=== PATIENT | male | born 1955 | race Caucasian/White ===

== ENCOUNTER 2017-03-07 05:00 | Day surgery (SDC) | payer MEDICARE, MEDICAID ==
[2017-03-06 11:09] LABS: HEMATOCRIT 49.1 % (42.0-54.0); HEMOGLOBIN 17.1 g/dL (13.5-17.5); MCH 31.9 pg (26.0-34.0); MCHC 34.8 g/dL (31.0-37.0); MCV 91.6 fL (80.0-100.0); MEAN PLATELET VOLUME 10.7 fL (7.4-10.4); RBC 5.36 10x6/uL (4.20-6.10); RDW 12.9 % (11.5-14.5); WBC 11.1 10x3/uL (4.8-10.8)
[2017-03-06 11:25] LABS: CALC OSMOLALITY 277 mosm/kg (275-300); CALCIUM 9.3 mg/dL (8.5-10.1); CHLORIDE - SERUM 103 mmol/L (98-107); SODIUM 136 mmol/L (136-145); UREA NITROGEN 15 mg/dL (7-18); eGFR NON AFRICAN AMERICAN 81 mL/min (90-120)
[2017-03-06 11:27] LABS: GLUCOSE 197 mg/dL (74-106)
[~2017-03-07] VITALS: Ht 167.6 cm; Wt 101.6 kg
[~2017-03-07 05:00] MED LIST: BREO ELLIPTA 11 EACH INH; CELEXA20 MG PO; DALIRESP500 MCG PO; FLOMAX0.4 MG PO; FLUTICASONE PRO16 GM NASAL; FOLIC ACID1 MG PO; IBUPROFEN600 MG PO; IPRAT-ALBUT 0.5-3 ML UPD; LEVAQUIN500 MG PO; LEVEMIR100 U/M1 SC; LISINOPRIL-HCTZ1 T13 PO; LISINOPRIL10 MG PO; MOBIC7.5 MG PO; MUCINEX DM ER1 EAC1 PO; NEURONTIN600 MG PO; NICODERM C1 PATCH .3 TRANSDERM; PERCOCET 5-3251 TAB PO; PREDNISONE10 MG PO; PROAIR HFA8.5 GM INH; PROTONIX40 MG PO; PULMICORT0.5 MG/21 UPD; SINGULAIR10 MG PO; STERAPRED 5MG 125 MG PO; STERAPRED DS 1210 MG PO; TESSALON PERLE100 MG PO; THIAMINE HCL50 MG PO; ZESTORETIC 20/21 TAB PO
[2017-03-07 05:38] VITALS: BP 135/74; Ht 167.6 cm; Wt 101.6 kg
[2017-03-07] MEDS ORDERED: PERCOCET 5-3251 TAB PO (08:07)
--- NOTE | 2017-03-07 08:20 | NUR ---
UPON ENTRANCE TO RECOVERY THE PATIENT WAS ADJITATED AND TRYING TO GET UP OUT OF BED. VERSED AND DILAUDID WERE ORDERED WITH A POSITIVE RESPONSE.
--- NOTE | 2017-03-07 09:36 | NUR ---
IV DC WITH CATHER TIP INTACT
--- NOTE | 2017-03-11 10:25 | OP ---
PATIENT NAME: AKOSUA GUZMÁN MEDICAL RECORD: [id number] :57 LOCATION:[facility] ADMISSION DATE: SURGEON: KARLEY GUILLORY MD DATE OF OPERATION: 03/07/2017 PREOPERATIVE DIAGNOSIS: Left posterior shoulder cyst and left side of his posteromedial spine cyst. POSTOPERATIVE DIAGNOSIS: Left posterior shoulder cyst and left side of his posteromedial spine cyst. PROCEDURE PERFORMED: Excision of two cysts, the shoulders cyst was approximately 2 cm x 2 cm and the one by the spine was about 1.5 cm x 1 cm. These were both removed in their entirety and sent separately to pathology. There were copiously irrigated then closed. ANESTHESIA: General. CONDITION: He tolerated the procedure well and was transferred to the recovery room in stable condition. INDICATIONS: This is a 61-year-old gentleman who has had 2 areas, one on the back of his shoulder and one on the back of his back that has been consistent with what appeared to be a cyst. He recalls perhaps a puncture wound there that may be started it. We discussed the options. He wanted these excised. OPERATIVE REPORT: The patient was taken to the operating room and placed in supine position. General anesthesia was obtained. He was then flipped to prone position. The 2 areas were prepped and draped in normal fashion. I then made an incisions over each of them taking them out circumferentially removing all of the tissue involved. Once this was accomplished, they were both sent to pathology in separate containers. They did appear to be most likely epidermal inclusion cyst. The 2 incisions were copiously irrigated, then closed with 2-0 Vicryl, then Prolene, placed in half inch Steri-Strips, a soft dressing, awakened and transferred to the recovery room in stable condition. We will see him back in the clinic about 10-14 days. TRANSINT:[id number] Voice Confirmation ID: [id number] DOCUMENT ID: [id number] KARLEY GUILLORY MD at 1025 CC: [id number] DICTATION DATE: 03/07/17 1037 RETIREMENT OFFICER: 03/07/17 1713 [facility] 03/07/17 [id number] [place] [address]
== END 2017-03-07 09:40 | disposition home or self-care (01) ==
LOC: D.OPS 05:00 → D.PAN 09:45
PROVIDERS: Anesthesiology
DX: L72.0 Epidermal cyst (principal); M25.512 Pain in left shoulder; M16.10 Unilateral primary osteoarthritis, unspecified hip; E11.9 Type 2 diabetes mellitus without complications

== ENCOUNTER 2017-03-28 06:18 | Day surgery (SDC) | payer MEDICARE, MEDICAID ==
[2017-03-27 16:44] LABS: HEMOGLOBIN 16.2 g/dL (13.5-17.5); MCH 32.1 pg (26.0-34.0); MCHC 35.2 g/dL (31.0-37.0); MCV 91.1 fL (80.0-100.0); MEAN PLATELET VOLUME 11.2 fL (7.4-10.4); RBC 5.05 10x6/uL (4.20-6.10); RDW 12.9 % (11.5-14.5); WBC 11.7 10x3/uL (4.8-10.8)
[2017-03-27 16:55] LABS: APTT 31.7 SECONDS (22.8-39.4); INR 0.99 (0.85-1.17); PROTIME 12.9 SECONDS (11.6-15.0)
[2017-03-27 17:02] LABS: ALBUMIN 3.7 g/dL (3.4-5.0); ALKALINE PHOSPHATASE 108 U/L (46-116); ALT (SGPT) 72 U/L (10-68); BILIRUBIN - TOTAL 0.37 mg/dL (0.2-1.3); CALC OSMOLALITY 274 mosm/kg (275-300); CALCIUM 9.2 mg/dL (8.5-10.1); CARBON DIOXIDE 25.4 mmol/L (21.0-32.0); CHLORIDE - SERUM 102 mmol/L (98-107); CREATININE - SERUM 0.9 mg/dL (0.6-1.3); POTASSIUM - SERUM 4.7 mmol/L (3.5-5.1); PROTEIN - SERUM 6.9 g/dL (6.4-8.2); SODIUM 136 mmol/L (136-145); UREA NITROGEN 15 mg/dL (7-18); eGFR NON AFRICAN AMERICAN > 90 mL/min (90-120)
[2017-03-27 17:03] LABS: GLUCOSE 138 mg/dL (74-106)
[2017-03-28] MEDS ORDERED: BACTRIM DS TABL1 TAB PO (14:24)
[2017-03-28] MEDS ORDERED: PERCOCET 7.5/321 TAB PO (14:25)
== END 2017-03-28 16:45 | disposition home or self-care (01) ==
LOC: D.OPS 06:18
PROVIDERS: Anesthesiology
DX: T81.31XA Disruption of external operation (surgical) wound, not elsewhere classified, initial encounter (principal)

== ENCOUNTER 2017-12-06 17:12 | Emergency (ER) | payer MEDICARE, MEDICAID ==
[2017-03-28 11:27] VITALS: BMI 36.2
[~2017-12-06 17:12] MED LIST changes: +BACTRIM DS TABL1 TAB PO; +PERCOCET 7.5/321 TAB PO
[2017-12-06 18:26] LABS: BASOPHILS 0.3 % (0-2); EOSINOPHILS 0.9 % (0-7); HEMATOCRIT 46.8 % (42.0-54.0); HEMOGLOBIN 16.4 g/dL (13.5-17.5); IMMATURE GRANULOCYTES 0.4 % (0-5); LYMPHOCYTES 15.6 % (15-50); MCH 31.4 pg (26.0-34.0); MCV 89.7 fL (80.0-100.0); MEAN PLATELET VOLUME 10.3 fL (7.4-10.4); MONOCYTES 14.2 % (2-11); NEUTROPHILS 68.6 % (40-80); PLATELET COUNT 192 10x3/uL (130-400); RBC 5.22 10x6/uL (4.20-6.10); RDW 12.8 % (11.5-14.5); WBC 9.8 10x3/uL (4.8-10.8)
[2017-12-06 18:42] LABS: ANION GAP 13.8 mmol/L (8-16); BILIRUBIN - TOTAL 0.34 mg/dL (0.2-1.3); CALCIUM 9.6 mg/dL (8.5-10.1); CARBON DIOXIDE 27.6 mmol/L (21.0-32.0); CREATININE - SERUM 1.1 mg/dL (0.6-1.3); POTASSIUM - SERUM 4.4 mmol/L (3.5-5.1); PROTEIN - SERUM 7.7 g/dL (6.4-8.2)
== END 2017-12-06 21:09 | disposition left against medical advice (07) ==
LOC: D.ER 17:12 → D.MS 19:21 → D.ER 19:21
PROVIDERS: Emergency Medicine
DX: J20.9 Acute bronchitis, unspecified (principal); J44.1 Chronic obstructive pulmonary disease with (acute) exacerbation; I10 Essential (primary) hypertension; E11.9 Type 2 diabetes mellitus without complications; Z79.4 Long term (current) use of insulin; F17.200 Nicotine dependence, unspecified, uncomplicated

== ENCOUNTER 2019-02-11 16:52 | Inpatient (IN) | payer MEDICARE ==
[~2019-02-11] VITALS: Ht 167.6 cm; Wt 101.6 kg
--- NOTE | ~2019-02-11 | EC ---
PATIENT:AKOSUA GUZMÁN DATE OF SERVICE: 02/11/19 SEX: M MEDICAL RECORD: [id number] DATE OF : 57 [facility] AGE OF PATIENT: 63 ADMISSION DATE: 02/11/19 REFERRING PHYSICIAN: INTERPRETING PHYSICIAN: COURTNEY GILBERT MD ECHOCARDIOGRAM REPORT ECHO CHARGES 4 ECHO COMPLETE Date: 02/12/19 CLINICAL DIAGNOSIS: CHF ECHOCARDIOGRAPHIC MEASUREMENTS (adult normal given) AC root (d.<3.7cm) 3.7 cm LV Septum d (<1.2 cm> 1.3 cm Valve Excursion 1.9 cm LV Septum (systole) 1.5 cm Left Atria (s.<4.0cm> 3.6 cm LVPW d(<1.2cm) 1.6 cm RV (d.<2.3cm) 5.0 cm LVPW (sytole) 1.8 cm LV diastole(<5.6CM) 5.1 cm MV E-F(>70mm/sec) cm LV systole 3.9 cm LVOT Diameter 2.2 cm MV exc.(>10mm) cm Est.ejection fraction (50-75%) % DOPPLER: LVIT cm/sec A 102 cm/sec E 81.0 cm/sec LA cm/sec RVSP 19 mmHg LVOT 110 cm/sec AOP1/2T m/s Asc. Ao 163 cm/sec RVOT 120 cm/sec RA cm/sec PA 177 cm/sec AV Gradient Peak 10.61mmHg AV Mean 5.95 mmHg AV Area 2.5 cm MV Gradient Peak 4.97 mmHg MV Mean 2.49 mmHg MV Area cm COMMENTS: Model Technician: Hemal MENDOZA Composition [employer] Applier: 1 Dr. Gilbert TAPE# PACS Pericardial Effusion N DATE OF SERVICE: FINDINGS: 1. Left ventricular chamber size is within normal limits. Left ventricular systolic function is normal. Overall ejection fraction estimated at 65%. 2. Left atrium, right atrium, and right ventricular chamber sizes are within normal limits. 3. Valvular structures have normal structure and motion. 4. Doppler interrogation reveals no significant valvular insufficiency or stenosis. ECHOCARDIOGRAM REPORT [id number] AKOSUA GUZMÁN 5. No evidence of pericardial effusion or left ventricular thrombus. TRANSINT:[id number] Voice Confirmation ID: [id number] DOCUMENT ID: [id number] COURTNEY GILBERT MD CC: [id number] DICTATION DATE: 02/12/19 1556 PATTERN ROOM ATTENDANT: 02/12/[address] [facility] [address] [id number]
[2019-02-11 18:18] LABS: HEMATOCRIT 46.5 % (42.0-54.0); HEMOGLOBIN 16.4 g/dL (13.5-17.5); MCH 30.7 pg (26.0-34.0); MCHC 35.3 g/dL (31.0-37.0); MCV 87.1 fL (80.0-100.0); MEAN PLATELET VOLUME 10.6 fL (7.4-10.4); PLATELET COUNT 220 10x3/uL (130-400); RBC 5.34 10x6/uL (4.20-6.10); RDW 12.6 % (11.5-14.5); WBC 21.6 10x3/uL (4.8-10.8)
[2019-02-11 18:28] LABS: ALBUMIN 3.8 g/dL (3.4-5.0); ALKALINE PHOSPHATASE 106 U/L (46-116); ALT (SGPT) 59 U/L (10-68); BILIRUBIN - TOTAL 0.67 mg/dL (0.2-1.3); CALC OSMOLALITY 275 mosm/kg (275-300); CALCIUM 8.9 mg/dL (8.5-10.1); CARBON DIOXIDE 28.1 mmol/L (21.0-32.0); CHLORIDE - SERUM 98 mmol/L (98-107); POTASSIUM - SERUM 4.1 mmol/L (3.5-5.1); SODIUM 134 mmol/L (136-145); UREA NITROGEN 17 mg/dL (7-18); eGFR NON AFRICAN AMERICAN 80 mL/min (90-120)
[2019-02-11 18:30] LABS: APTT 25.7 SECONDS (22.8-39.4); GLUCOSE 203 mg/dL (74-106); INR 0.98 (0.85-1.17); PROTIME 12.5 SECONDS (11.6-15.0)
[2019-02-11 18:41] LABS: CKMB 5.5 U/L (0.0-3.6); CREATINE KINASE 320 UL (21-232); MAGNESIUM - SERUM 1.5 mg/dL (1.8-2.4); TROPONIN-I < 0.017 ng/mL (0.000-0.060)
[2019-02-11 18:45] LABS: LYMPHOCYTES 10 % (15-50); MONOCYTES 2 % (2-11); NEUTROPHILS 86 % (40-80); PLATELET ESTIMATE NORMAL
[2019-02-11 18:46] LABS: STOMATOCYTES OCC; TEAR DROP CELLS OCC
[2019-02-11 20:26] VITALS: BP 130/94
[2019-02-11] MEDS ORDERED: ADVIL200 MG PO (21:21)
--- NOTE | 2019-02-11 21:27 | NUR ---
RECIEVED TO ROOM FROM ER VIA WHEELCHAIR. ALERT,ORIENTED.NO DISTRESS NOTED. O2 @ 3L PER NC ON. RESP UNLABORED. SL TO RIGHT HAND INTACT WITHOUT REDNESS OR EDEMA.SL TO RAC INTACT WITHOUT REDNESS. CL IN REACH. ORIENTED TO ROOM.
--- NOTE | 2019-02-11 22:10 | NUR ---
PATIENT SITTING ON SIDE OF BED EATING PIZZA AND DRINKING MT DEW. TALKED TO PATIENT ABOUT DIABETIC DIET AND DRINKS. PATIENT LAUGHS AND STATES" YEAH, I TRIED THAT DIABETIC DIET AN IT ABOUT KILLED ME SO I EAT WHAT I WANT AND JUST TAKE MORE INSULIN.I'M WHAT YOU CALL A NON COMPLIANT DIABETIC".
[2019-02-11 23:43] LABS: CKMB 3.1 U/L (0.0-3.6); CREATINE KINASE 257 UL (21-232)
[2019-02-11 23:50] LABS: TROPONIN-I < 0.017 ng/mL (0.000-0.060)
[2019-02-11 23:56] VITALS: BP 117/75; BMI 36.2
[2019-02-12 00:15] VITALS: BP 132/75
--- NOTE | 2019-02-12 02:13 | NUR ---
I have reviewed this patient and I concur with the Shift Assessment completed by the Licensed Practical Nurse today this shift.
[2019-02-12 05:00] VITALS: BP 132/75
[2019-02-12 05:05] VITALS: BP 141/88
[2019-02-12 07:13] LABS: ALBUMIN 3.4 g/dL (3.4-5.0); ALKALINE PHOSPHATASE 101 U/L (46-116); ALT (SGPT) 47 U/L (10-68); BILIRUBIN - TOTAL 0.57 mg/dL (0.2-1.3); CALCIUM 8.8 mg/dL (8.5-10.1); CARBON DIOXIDE 24.2 mmol/L (21.0-32.0); CHLORIDE - SERUM 97 mmol/L (98-107); CKMB 3.9 U/L (0.0-3.6); CREATINE KINASE 240 UL (21-232); CREATININE - SERUM 1.1 mg/dL (0.6-1.3); POTASSIUM - SERUM 4.7 mmol/L (3.5-5.1); PROTEIN - SERUM 7.5 g/dL (6.4-8.2); SODIUM 130 mmol/L (136-145); TROPONIN-I < 0.017 ng/mL (0.000-0.060); UREA NITROGEN 16 mg/dL (7-18); eGFR NON AFRICAN AMERICAN 72 mL/min (90-120)
[2019-02-12 07:17] LABS: CALC OSMOLALITY 280 mosm/kg (275-300)
[2019-02-12 07:19] LABS: GLUCOSE 447 mg/dL (74-106)
--- NOTE | 2019-02-12 07:19 | NUR ---
LAB CALLED CRITICAL GLUCOSE. PT IS ASYMPTOMATIC AND VERY NONCOMPLIANT DIABETIC. TILE MECHANIC HELPER TREATED PER SS INSULIN.
[2019-02-12 07:31] LABS: BASOPHILS 0.1 % (0-2); EOSINOPHILS 0 % (0-7); HEMATOCRIT 46.3 % (42.0-54.0); HEMOGLOBIN 16.1 g/dL (13.5-17.5); IMMATURE GRANULOCYTES 0.4 % (0-5); LYMPHOCYTES 8.2 % (15-50); MCH 30.5 pg (26.0-34.0); MCHC 34.8 g/dL (31.0-37.0); MCV 87.7 fL (80.0-100.0); MONOCYTES 2.5 % (2-11); NEUTROPHILS 88.8 % (40-80); PLATELET COUNT 205 10x3/uL (130-400); RBC 5.28 10x6/uL (4.20-6.10); RDW 12.7 % (11.5-14.5); WBC 19.5 10x3/uL (4.8-10.8)
--- NOTE | 2019-02-12 11:00 | NUR ---
URINE SAMPLE NEEDED HOWEVER PATIENT KEEPS STATING HE FORGETS AND DUMPS IT. SUPPLIES PROVIDED AND WILL WAIT FOR NEXT SPECIMEN. PT VERBALIZED UNDERSTANDING. WILL CTM.
[2019-02-12 11:55] VITALS: BP 121/79
--- NOTE | 2019-02-12 12:03 | NUR ---
FSBS 368. PROVIDED PT WITH INSULIN PER SS. PT SITTING UP IN BED RESTING QUIETLY C/O PAIN. HE STATES THE IV PAIN MEDICATION DEFINITELY HELPED BUT IT HAS WORN OFF AND HE IS REQUESTING SOMETHING ELSE. WILL PAGE PRIMARY AND INQUIRE ABOUT SOMETHING FOR IT. PT VOICED THANKS AND DENIES ANY FURTHER NEEDS AT THIS TIME AND IS WAITING ON LUNCH. CL IN REACH. WILL CTM.
[2019-02-12 13:06] VITALS: Ht 167.6 cm; Wt 101.6 kg
[2019-02-12] MEDS ORDERED: ZANAFLEX4 MG PO (15:20)
--- NOTE | 2019-02-12 15:26 | NUR ---
PT C/O BACK AND LUNG PAIN REQUESTING AND PROVIDED WITH PRN PAIN MEDICATION. PT REFUSED HIS TELEMETRY SO I RETURNED IT TO [employer] AND WILL DISCUSS WITH PRIMARY. PT VOICED THANKS AND DENIES ANY FURTHER NEEDS AT THIS TIME. CL IN REACH, BED IN LOWEST. WILL CTM.
[2019-02-12 16:52] VITALS: BP 113/72
--- NOTE | 2019-02-12 17:00 | NUR ---
PT SITTING UP ON EDGE OF BED EATING SUPPER. FSBS 475 PT IS EXTREMELY NONCOMPLIANT AND VERY OPEN ABOUT IT AND STATES "I'LL EAT WHATEVER I WANT AND I KNOW ITS NOT GOOD FOR ME, BUT I'M NOT CHANGING MY DIET" PROVIDED PT WITH INSULIN PER SS. WILL DISCUSS WITH PRIMARY TO INQUIRE ABOUT A1C TESTING OR ADDING SOMETHING ELSE TO HIS MEDICATION REGIMEN PT IS CONSTANTLY HYPERGLYCEMIC. PT STATES HE IS DOING WELL AT THIS TIME. DRY HACKING COUGH NOTED HOWEVER PULSE OX 93% ON RA. PT STATES HE WILL WEAR THE OXYGEN WHEN HE FEELS LIKE HE NEEDS IT SO ITS BASICALLY "PRN" PT DENIES ANY IMMEDIATE NEEDS. CL IN REACH, BED IN LOWEST. WILL CTM.
--- NOTE | 2019-02-12 17:50 | NUR ---
PAGED PHARMACY WAITING ON ROCEPHIN ANBX STILL. WILL WAIT.
--- NOTE | 2019-02-12 18:59 | NUR ---
BEDSIDE SHIFT REPORT GIVEN. PT RESTING QUIETLY IN BED. NO FURTHER NEEDS.
--- NOTE | 2019-02-12 19:34 | NUR ---
PT IN BED READING PAPER. REQUESTS "PAIN SHOT" WHEN IT IS DUE. NO ACUTE DISTRESS NOTED AT THIS TIME.
[2019-02-12 20:55] VITALS: BP 116/71
--- NOTE | 2019-02-13 00:24 | NUR ---
CALLED IN TO ROOM BY SCREAMING PT WHO STATES I PULLED MY IV OUT. UPON ENTRANCE TO ROOM BLOOD NOTED ON THE FLOOR BESIDE THE BED. PT SITTING IN BED CLUTCHING AFFECTED ARM AT THE WRIST. DIRECT PRESSURE APPLIED TO SITE UNTIL BLEEDING STOPPED. PT GOT IN SHOWER. CLOTHES TAKEN TO BE WASHED.
[2019-02-13 00:55] VITALS: BP 85/57
--- NOTE | 2019-02-13 03:01 | NUR ---
IV SITED TO L FOREARM ON SECOND ATTEMPT 22G SALINE LOCKED
--- NOTE | 2019-02-13 05:05 | NUR ---
PT LEFT FLOOR FULLY DRESSED AT THIS TIME. SAID HE WAS "GOING TO GET SOME EXERCISE THIS MORNING"
--- NOTE | 2019-02-13 05:19 | NUR ---
I have reviewed this patient and I concur with the Shift Assessment completed by the Licensed Practical Nurse today this shift.
--- NOTE | 2019-02-13 05:42 | NUR ---
PT RETURNED TO ROOM
[2019-02-13 06:46] LABS: HEMATOCRIT 43.5 % (42.0-54.0); HEMOGLOBIN 14.8 g/dL (13.5-17.5); MCH 30.7 pg (26.0-34.0); MCV 90.2 fL (80.0-100.0); MEAN PLATELET VOLUME 11.2 fL (7.4-10.4); PLATELET COUNT 228 10x3/uL (130-400); RBC 4.82 10x6/uL (4.20-6.10); RDW 13.2 % (11.5-14.5); WBC 27.1 10x3/uL (4.8-10.8)
[2019-02-13 07:34] LABS: ANION GAP 14.2 mmol/L (8-16); CALCIUM 8.7 mg/dL (8.5-10.1); CARBON DIOXIDE 25.3 mmol/L (21.0-32.0)
[2019-02-13 07:36] LABS: CREATININE - SERUM 1.4 mg/dL (0.6-1.3); POTASSIUM - SERUM 5.5 mmol/L (3.5-5.1)
[2019-02-13 07:37] LABS: LYMPHOCYTES 6 % (15-50); MONOCYTES 1 % (2-11); NEUTROPHILS 88 % (40-80); PLATELET ESTIMATE NORMAL
--- NOTE | 2019-02-13 07:47 | NUR ---
CALLED ABOUT PT BS OF 432. ORDERS GIVEN FOR 28 UNITS PER SLIDING SCALE. AND RESTART PT LEVIMIR HOME DOSE.
[2019-02-13 09:07] VITALS: BP 130/64
--- NOTE | 2019-02-13 11:21 | NUR ---
PT BS 546, STAT GLUCOSE ORDERED. PT SHOWS NO S/S OF HYPERGLYCEMIA. PT STATES THAT HIS BS NORMALLY RUNS IN THE HIGH 400'S AND 500'S.
--- NOTE | 2019-02-13 11:34 | NUR ---
PT RESTING. A/O X 4. UP AB BERNARDO. STATES PAIN IN ABD/BACK. DILAUDID GIVEN. NS @ 75 CC/HR TO IV IN L FOREARM. 2L O2 PRN VIA NC. REFUSES TO WEAR TELE. LOUD PRODUCTIVE COUGH NOTED. PT STATES HE IS HEP C+. INFORMED PT THAT I NEEDED A URINE COLLECTION. NO FURTHER CONCERNS AT THIS TIME. BED LOWERED AND LOCKED. CL IN REACH. WILL CPOC.
[2019-02-13 13:50] VITALS: BP 109/83
[2019-02-13 13:50] LABS: APPEARANCE CLEAR (CLEAR); BILIRUBIN NEGATIVE (NEGATIVE); COLOR YELLOW (YELLOW); GLUCOSE 1000 mg/dL (NEGATIVE); KETONE NEGATIVE (NEGATIVE); NITRITE NEGATIVE (NEGATIVE); PROTEIN NEGATIVE (NEGATIVE); SPECIFIC GRAVITY 1.015 (1.005-1.020); UROBILINOGEN NORMAL (NORMAL)
[2019-02-13 13:57] LABS: UDS - AMPHET NEGATIVE QUAL (NEGATIVE); UDS - BARB NEGATIVE QUAL (NEGATIVE); UDS - BENZO NEGATIVE QUAL (NEGATIVE); UDS - COCAINE NEGATIVE QUAL (NEGATIVE); UDS - OPIATE POSITIVE QUAL (NEGATIVE); UDS - PCP NEGATIVE QUAL (NEGATIVE); UDS - THC NEGATIVE QUAL (NEGATIVE)
--- NOTE | 2019-02-13 17:33 | NUR ---
PT REFUSES TO KEEP IV HOOKED UP TO NS @ 75 CC/HR
[2019-02-13 17:35] VITALS: BP 124/56
--- NOTE | 2019-02-13 19:17 | NUR ---
PT IN BED WATCHING TELEVISION. DENIES NEEDS AT THIS TIME.
[2019-02-13 19:30] VITALS: BP 148/77
[2019-02-14] VITALS: BP 131/70
--- NOTE | 2019-02-14 01:19 | NUR ---
I have reviewed this patient and I concur with the Shift Assessment completed by the Licensed Practical Nurse today this shift.
[2019-02-14 04:00] VITALS: BP 126/75
[2019-02-14 06:48] LABS: BASOPHILS 0.1 % (0-2); EOSINOPHILS 0 % (0-7); HEMATOCRIT 43.1 % (42.0-54.0); HEMOGLOBIN 14.5 g/dL (13.5-17.5); IMMATURE GRANULOCYTES 1.2 % (0-5); LYMPHOCYTES 8.1 % (15-50); MCH 30.3 pg (26.0-34.0); MCHC 33.6 g/dL (31.0-37.0); MCV 90.2 fL (80.0-100.0); MEAN PLATELET VOLUME 11.2 fL (7.4-10.4); MONOCYTES 4.9 % (2-11); NEUTROPHILS 85.7 % (40-80); PLATELET COUNT 226 10x3/uL (130-400); RBC 4.78 10x6/uL (4.20-6.10); RDW 13.3 % (11.5-14.5); WBC 21.9 10x3/uL (4.8-10.8)
[2019-02-14 06:58] LABS: ANION GAP 11.6 mmol/L (8-16); CALCIUM 8.7 mg/dL (8.5-10.1); CARBON DIOXIDE 27.1 mmol/L (21.0-32.0); CREATININE - SERUM 1.1 mg/dL (0.6-1.3); POTASSIUM - SERUM 4.7 mmol/L (3.5-5.1)
--- NOTE | 2019-02-14 07:23 | NUR ---
PT LAYING IN BED RESTING. DENIES PAIN AT THIS TIME. VITALS STABLE. WILL CPOC.
[2019-02-14] MEDS ORDERED: ZITHROMAX500 MG PO (07:39)
[2019-02-14] MEDS ORDERED: STERAPRED DS 1010 MG PO (07:40)
[2019-02-14] MEDS ORDERED: OMNICEF300 MG PO (07:40)
[2019-02-14] MEDS ORDERED: PROTONIX40 MG PO (07:41)
[2019-02-14 08:00] VITALS: BP 126/77
--- NOTE | 2019-02-14 10:04 | NUR ---
PT TOOK MEDS WITHOUT DIFFICULTY. INFORMED PT THAT HE COULDNT HAVE DILAUDID IF GOING HOME TODAY. PT AGREED. HERACLIO ACE.
--- NOTE | 2019-02-14 10:05 | NUR ---
PT CAME TO DESK AND ASKED IF DC WAS DONE. INFOMED PT THAT WE WERE STILL WAITING. PT STATED TO JUST TAKE THE IV OUT. INFORMED PT THAT IT WAS BEING WORKED ON RIGHT NOW. PT STATED HE WAS ONLY WAITING A LITTLE WHILE LONGER.
--- NOTE | 2019-02-14 10:39 | NUR ---
PT OFF FLOOR. CALLED SECURITY TO FIND PT. PT BACK IN ROOM, WILL NOW GIVE PT DC.
--- NOTE | 2019-02-14 10:50 | NUR ---
DC GIVEN TO PT. IV REMOVED. TIP INTACT.
--- NOTE | 2019-02-14 10:53 | NUR ---
PT DC HOME PER PERSONAL CAR. PT REFUSED TO BE TAKEN OUT BY WHEELCHAIR.
--- NOTE | 2019-02-14 10:55 | NUR ---
I have reviewed this patient and I concur with the Shift Assessment completed by the Licensed Practical Nurse today this shift.
--- NOTE | 2019-02-14 11:14 | MORECARE ---
CASE MANAGEMENT DISCHARGE SUMMARY PATIENT: AKOSUA GUZMÁN UNIT: [id number] ADM DATE: 02/11/19 AGE: 63 : 56 SEX: M ROOM/BED: D.1201 AUTHOR: HYUN KEYS PHYSICIAN: REFERRING PHYSICIAN: NEDA PENA MD DATE OF SERVICE: 02/14/19 Discharge Plan Patient Name: AKOSUA GUZMÁN Facility: [facility]:[place] : 1955 Planned Disposition: Home Anticipated Discharge Date: 02/14/19 Discharge Date: 02/14/2019 Expected LOS: 3 Initial Reviewer: [email or web address] Initial Review Date: 02/11/2019 Generated: 02/14/19 12:14 pm Patient Name: AKOSUA GUZMÁN Page [phone] at 1114 All edits/amendments must be made on the electronic document DICTATION DATE: 02/14/19 1114 FLARE MAN: BROOKE 02/14/19 1114 RPT#: [id number] DC DATE:02/14/19 STATUS: DIS IN [facility] [address] [place] [address] END OF REPORT
--- NOTE | 2019-02-14 11:22 | MORECARE ---
CASE MANAGEMENT DISCHARGE SUMMARY PATIENT: AKOSUA GUZMÁN UNIT: [id number] ADM DATE: 02/11/19 AGE: 63 : 57 SEX: M ROOM/BED: D.1201 AUTHOR: HYUN KEYS PHYSICIAN: REFERRING PHYSICIAN: NEDA PENA MD DATE OF SERVICE: 02/14/19 Discharge Plan Patient Name: AKOSUA GUZMÁN Facility: [facility]:[place] : 1955 Planned Disposition: Home Anticipated Discharge Date: 02/14/19 Discharge Date: 02/14/2019 Expected LOS: 3 Initial Reviewer: [email or web address] Initial Review Date: 02/11/2019 Generated: 02/14/19 12:21 pm Comments DCP- Discharge Planning Updated by [email or web address]: Sharon Coe on 02/14/19 10:[address] CM NOTIFIED OF DISCHARGE. CAME TO UNIT AND PATIENT COULD NOT BE FOUND. CHART REVIEWED. NO APPARENT NEEDS, PATIENT APPARENTLY UP AND ABOUT. SECURITY ASSISTED. CM RETURN TO ASSESS PATIENT AND HE HAD BEEN DISCHARGED. Last DP export: 02/14/19 10:14 a Patient Name: AKOSUA GUZMÁN Page [phone] at 1122 All edits/amendments must be made on the electronic document DICTATION DATE: 02/14/19 1121 FOREIGN EXCHANGE DEALER: BROOKE 02/14/19 1121 RPT#: [id number] DC DATE:02/14/19 STATUS: DIS IN [facility] [address] [place] [address] END OF REPORT
== END 2019-02-14 10:55 | disposition home or self-care (01) | DRG 190 ==
LOC: D.ER 16:52 → D.M3 19:14 → D.EDHOLD 19:14 → D.M3 19:43
PROVIDERS: Family Medicine; ADMIT Internal Medicine Nephrology; ATTEND Internal Medicine Nephrology
DX: J44.1 Chronic obstructive pulmonary disease with (acute) exacerbation (principal); J96.21 Acute and chronic respiratory failure with hypoxia; I24.8 Other forms of acute ischemic heart disease; E87.1 Hypo-osmolality and hyponatremia; F17.213 Nicotine dependence, cigarettes, with withdrawal; E83.42 Hypomagnesemia; I10 Essential (primary) hypertension; E78.5 Hyperlipidemia, unspecified; E11.9 Type 2 diabetes mellitus without complications; N40.0 Benign prostatic hyperplasia without lower urinary tract symptoms; F32.9 Major depressive disorder, single episode, unspecified; F41.9 Anxiety disorder, unspecified; B19.20 Unspecified viral hepatitis C without hepatic coma; Z72.89 Other problems related to lifestyle; Z91.19 Patient's noncompliance with other medical treatment and regimen; Z86.711 Personal history of pulmonary embolism